=== PATIENT | male | born 1950 | race Caucasian/White ===

== ENCOUNTER → 2019-01-01 | Outpatient (CLI) | payer OTHER, SELFPAY ==
[2019-01-01 10:56] LABS: PSA,Total - Annual Screen 0.68 ng/mL (0.00-4.00)
[2019-01-02 13:20] LABS: AST(SGOT) 24 U/L (15-37); Alanine Aminotransfer ALT/SGPT 35 U/L (16-61); Albumin, Serum 3.6 g/dL (3.2-5.0); Alkaline Phosphatase 121 U/L (45-117); Anion Gap 10 (5-15); BUN 17 mg/dL (7-18); BUN/Creat Ratio 17.4 RATIO (10-20); Calcium,Total 8.8 mg/dL (8.5-10.1); Chloride 108 mmol/L (98-107); Cholesterol 180 mg/dL (200); Creatinine, Serum 0.98 mg/dL (0.70-1.30); EST Glomerular Filtration Rate 82 mL/min (>60); Est Glom Filt Rate - Afr Amer 99 mL/min (>60); Globulin 3.7 g/dL (2.2-4.2); Glucose 92 mg/dL (74-106); High Density Lipoprotein 41 mg/dL; Potassium 4.5 mmol/L (3.5-5.1); Protein, Total 7.3 g/dL (6.4-8.2); Sodium Level 144 mmol/L (136-145); Triglycerides 175 mg/dL; Very Low Density Lipoprotein 35 mg/dL (5-40)
== END | disposition home or self-care (01) ==
LOC: MFPLAB 08:08
PROVIDERS: Family Provider Family Medicine; PCP Family Medicine; Referring Provider Family Medicine; Visit Provider Family Medicine
DX: I10 Essential (primary) hypertension (principal); Z12.5 Encounter for screening for malignant neoplasm of prostate
CPT/HCPCS: 36415; 80053; 80061; 84153; G0103

== ENCOUNTER → 2019-01-28 | Outpatient (CLI) | payer OTHER, SELFPAY ==
[2013-11-01 12:53] VITALS: BMI 33.7
--- NOTE | 2019-01-28 | LES_PTH ---
PATIENT: ROSALBA CURIEL LOC: [facility] U#:[id number] AGE/SX: 68/M ROOM: RE01/28/[address]: Dr. Brain Ly MD : 1950 BED: DIS: 01/28/2019 SPEC #: [id number] RECD: 01/28/19 14:21 STATUS: RENY BECKY #: [id number] MICHAEL: 01/28/19 00:[address]: Brain Ly DEPT: SURGICAL PATHOLOGY RECD BY: Jon Cote Tissues: A - Skin of arm B - Skin of face, NOS Procedures: Surgery Specimen Level IV HEADER OPERATION: Excision right posterior arm; right chin PRE-OP DIAGNOSIS: Rule out BCC TISSUE SUBMITTED: A - Excision right arm, B - Excision right chin MICROSCOPIC DIAGNOSIS A. Skin lesion of right arm, shave biopsy: Basal cell carcinoma, nodular and cystic. See comment. B. Skin lesion of right chin, shave biopsy: Basal cell carcinoma, nodular and cystic. See comment. AM:booker 01/29/19 COMMENT A & B. The lesion is incompletely excised. Clinical correlation is suggested. MICROSCOPIC DESCRIPTION Slides are reviewed. GROSS DESCRIPTION A - Received in fixative is one container labeled with the patient's name and designated right arm. The specimen consists of a shave biopsy of arroyo-white skin measuring 1 x 2.7 x 0.1 cm. The specimen is inked and submitted entirely in one cassette. It will be sectioned at the time of embedding. B - Received in fixative is one container labeled with the patient's name and designated right chin. The specimen consists of a shave biopsy of arroyo-white skin measuring 0.5 x 0.3 x 0.2 cm. The specimen is inked and submitted entirely in one cassette. / TIP:booker 01/28/19 TC:0 CPT: 29442 x2
== END | disposition home or self-care (01) ==
LOC: LABSPEC 14:02
PROVIDERS: Family Provider Family Medicine; PCP Family Medicine; Referring Provider Family Medicine; Visit Provider Family Medicine
DX: C44.612 Basal cell carcinoma of skin of right upper limb, including shoulder (principal); C44.319 Basal cell carcinoma of skin of other parts of face
CPT/HCPCS: 88305

== ENCOUNTER 2019-11-29 07:00 | Day surgery (SDC) | payer OTHER, SELFPAY ==
[2019-10-25 09:46] VITALS: BMI 33.7
[2019-11-29] VITALS (8 sets, daily range): BP systolic 94–152; BP diastolic 53–94; PULSE 53–68; RESP 16; TEMP 36.1–36.9; O2SAT 95–98; BMI 36.4
--- NOTE | 2019-11-29 07:18 | HP.PCM_ITS ---
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 Is patient in pain?: No Allergies No Known Allergies Allergy (Verified 10/25/19 09:45) Medications Metoprolol Tartrate [Lopressor (Beta Eliana)] 25 mg PO DAILY 11/01/13 [History Confirmed 10/25/19] Venlafaxine HCl [Effexor] 37.5 mg PO DAILY 11/01/13 [History Confirmed 10/25/19] pravastatin 20 mg tablet 20 mg PO DAILY 10/25/19 [History Confirmed 10/25/19] [facility] Medical History Sleep apnea (Acute) Hemorrhoids (Acute) Numbness and tingling (Acute) Panic disorder (Chronic) Surgical History Hx of colonoscopy (Acute) Hx of arthroscopic knee surgery (Acute) Hx of right inguinal hernia repair (Acute) Hx of umbilical hernia repair (Acute) History of trigger finger (Acute) Family History Mother Colon cancer Diabetes Father Heart disease CVA (cerebral vascular accident) Hypertension Social History (Updated 10/25/19 @ 10:[address] Angel Mckenzie MD) Smoking Status: Never smoker second hand exposure: No alcohol intake: never substance use type: does not use caffeine: Yes what type of physical activity do you participate in: none frequency: does not exercise HPI HPI HPI: ROSALBA CURIEL, is a 69 M who presents to the office today for surgical con sultation regarding a family history of colon cancer and a personal history of colon polyps. The patient is referred by his primary care present Dr. Brain Ly and a written copy of my surgical consult and recommendations will return to him. September 03, 2014 I performed the most recent colonoscopy for him. There were no polyps identified at that time. He subsequent at that same setting had a surgical hemorrhoidectomy. For at least 3 years he has been in good shape regarding that. Now he is complained over the last year or 2 that after defecation a time. Subsequently has a small amount of drainage. It is slightly irritating. Does not know the etiology. He is wanting that evaluated as well. His family history is notable for mother who had colon cancer and a paternal grandfather. He otherwise enjoys good health. He denies chest pain or shortness of breath. BMI is elevated at 33.7. HPI HPI HPI: ROSALBA CURIEL, is a 69 M who presents to the office today for ROS General General: No weight change, appetite, fatigue, colon cancer, breast cancer or weakness HEENT HEENT: No difficulty swallowing, eye injury, eye surgery, swollen glands or hoarseness Endo Endocrine: No thyroid disease, diabetes mellitus, thyroid cancer, Hair loss, heat intolerance or cold intolerance Skin Skin: No rash or changing moles Musc Musculoskeletal: No back problems, arthritis, rheumatoid arthritis, gout or joint pain Cardio Cardiovascular: No murmur, pacemaker, heart disease, atrial fibrillation, high blood pressure, heart attack, heart stent, palpitations, shortness of breat with exertion or chest pain Psych Psychiatric: Yes anxiety; no depression or hearing voices Resp Respiratory: No shortness of breath, Yes sleep apnea, No cough, No COPD, No asthma, No emphysema, No wheezing Gastro Gastrointestinal: No abdominal pain, No nausea or vomiting, No diarrhea, No constipation, No blood in stool, No acid reflux, Yes hemorrhoids, No ulcers, No gallbladder problem, No black,tarry stools Frankie Hematologic: No blood thinners, No blood disorders, No bleeding, No anemia, No blood clots Neuro Neurologic: No weakness Exam Const General: cooperative, comfortable, no acute distress Nutritional Appearance: obese Orientation: alert, awake [facility] Head: normal to inspection Chest Chest palpation & inspection: normal inspection of the chest Resp Effort & Inspection: normal respiratory effort Auscultation: clear to auscultation bilaterally Cardio Palpation: normal PMI Rate: regular rate Rhythm: regular rhythm Heart Sounds: no murmurs GI Palpation: soft, no hepatosplenomegaly Auscultation: normal bowel sounds Neuro Cognition: normal cognition Extrem General: no calf tenderness Psych Affect: normal affect Assessment & Plan Problems 1. Family history of malignant neoplasm of colon in mother Z80.0 2. Personal history of colonic polyps Z86.010 3. Hemorrhoids, unspecified hemorrhoid type K64.9 Plan I recommended the patient a colonoscopy with possible biopsy or polypectomy as indicated. He is aware of the technique, benefit, risk and alternatives. Very careful inspection of the perianal area will be pursued inspecting for possible etiology to post defecation leakage. Patient states that this leakage only occurs within time. After moving his bowels but not otherwise. He has had an opportunity to ask and have questions answered. He is aware that he is presenting the COVID 19 however the [facility] is reporting a low local incidence. We will schedule and proceed as noted. Cc: Dr. Brain Mckenzie M.D., F.A.C.S. I have re-examined the patient. There are no clinical changes since date of exam. Procedure Criteria Procedure Type: Elective COVID Risk Discussion: The surgeon/proceduralist and patient have discussed in detail the risk of exposure to and/or potential harm posed by the COVID-19 virus with having a surgery/procedure at this time versus the risk of delaying the surgery/procedure. It is not possible to know either the risk of delaying the surgery or procedure or chance of getting an infection with perfect accuracy, but a joint decision was made between the patient and the surgeon/proceduralist to proceed at this time with the scheduled surgery/procedure as indicated on the consent form.
[2019-11-29] MEDS: Lactated Ringers 1,000 ML 100 ML IV (07:24)
--- NOTE | 2019-11-29 08:00 | COLBX_PTH ---
PATIENT: ROSALBA CURIEL LOC: EN U#:[id number] AGE/SX: 69/M ROOM: RE11/29/[address]: Dr. Angel Mckenzie MD : 1950 BED: DIS: 11/29/2019 SPEC #: [id number] RECD: 11/29/19 10:03 STATUS: RENY BECKY #: [id number] MICHAEL: 11/29/19 08:[address]: Angel Mckenzie DEPT: SURGICAL PATHOLOGY RECD BY: Quinten Khan ENTERED: 11/29/19 10:47 SP TYPE: COLON BX OTHR DR: Dr. Brain Ly MD Tissues: Cecum, NOS Procedures: Surgery Specimen Level IV HEADER OPERATION: Colonoscopy (MAC) PRE-OP DIAGNOSIS: History of colon polyps TISSUE SUBMITTED: Cecal polyps x2 MICROSCOPIC DIAGNOSIS Cecal polyps x2, biopsy: Fragments of tubular adenoma. SJ:booker 12/02/19 MICROSCOPIC DESCRIPTION Slides are reviewed. GROSS DESCRIPTION Received in fixative is one container labeled with the patient's name and designated cecal polyps. The specimen consists of multiple irregular fragments of light arroyo soft tissue that in aggregate measure 1 x 0.5 x 0.1 cm. The specimen is totally submitted in one cassette. / SJ:booker 11/29/19 TC:5 CPT: 42853
--- NOTE | 2019-11-29 08:25 | OP.COLON_ITS ---
Patient Name: Shashank Lynn Procedure Date: 11/29/2019 7:55 AM Date of : 1950 Age: 69 Procedure: Colonoscopy Indications: High risk colon cancer surveillance: Personal history of colonic polyps Providers: Angel Mckenzie MD Referring MD: Max Ly Medicines: See the Anesthesia note for documentation of the administered medications Patient Profile: Last Colonoscopy: August 2014. Complications: No immediate complications. Procedure: Pre-Anesthesia Assessment: - Prior to the procedure, a History and Physical was performed, and patient medications and allergies were reviewed. The patient's tolerance of previous anesthesia was also reviewed. The risks and benefits of the procedure and the sedation options and risks were discussed with the patient. All questions were answered, and informed consent was obtained. Prior Anticoagulants: The patient has taken no previous anticoagulant or antiplatelet agents. ASA Grade Assessment: II - A patient with mild systemic disease. After reviewing the risks and benefits, the patient was deemed in satisfactory condition to undergo the procedure. After I obtained informed consent, the scope was passed under direct vision. Throughout the procedure, the patient's blood pressure, pulse, and oxygen saturations were monitored continuously. The adult colonoscope was introduced through the anus and advanced to the cecum, identified by appendiceal orifice and ileocecal valve. The colonoscopy was performed without difficulty. The patient tolerated the procedure well. The quality of the bowel preparation was good. The ileocecal valve and the appendiceal orifice were photographed. Scope In: 8:02:42 AM Scope Withdrawal Time 0 hours 11 minutes 29 seconds Scope Out: 8:19:15 AM Total Procedure Duration Time 0 hours 16 minutes 33 seconds Findings: Hemorrhoids were found on perianal exam. The digital rectal exam was normal. Pertinent negatives include normal prostate (size, shape, and consistency). A 4 mm polyp was found in the cecum. The polyp was sessile. The polyp was removed with a cold snare. Resection and retrieval were complete. A 5 mm polyp was found in the cecum. The polyp was sessile. The polyp was removed with a cold snare. Resection and retrieval were complete. Scattered diverticula were found in the sigmoid colon. Impression: - Hemorrhoids found on perianal exam. - One 4 mm polyp in the cecum, removed with a cold snare. Resected and retrieved. - One 5 mm polyp in the cecum, removed with a cold snare. Resected and retrieved. - Diverticulosis in the sigmoid colon. Recommendation: - Discharge patient to home. - Resume previous diet. - Continue present medications. - Repeat colonoscopy in 5 years for surveillance based on pathology results. - Telephone my office for pathology results in 1 week. Procedure Code(s): --- Professional --- 83919, Colonoscopy, flexible; with removal of tumor(s), polyp(s), or other lesion(s) by snare technique Diagnosis Code(s): --- Professional --- Z86.010, Personal history of colonic polyps K64.9, Unspecified hemorrhoids D12.0, Benign neoplasm of cecum K57.30, Diverticulosis of large intestine without perforation or abscess without bleeding CPT copyright 2017 [employer]. All rights reserved. The codes documented in this report are preliminary and upon advance scout review may be revised to meet current compliance requirements. Angel Mckenzie MD 11/29/2019 8:24:58 AM This report has been signed electronically. Number of Addenda: 0 Note Initiated On: 11/29/2019 7:55 AM
--- NOTE | 2019-11-29 08:25 | OP.CCLET_ITS ---
11/29/2019 Max Ly [address] [place] [address] Re : Colonoscopy procedure for Shashank Lynn Dear Dr. Ly This procedure was performed on Friday, November 29, 2019. My impressions and recommendations are as follows: Impressions : - Hemorrhoids found on perianal exam. - One 4 mm polyp in the cecum, removed with a cold snare. Resected and retrieved. - One 5 mm polyp in the cecum, removed with a cold snare. Resected and retrieved. - Diverticulosis in the sigmoid colon. Recommendations : - Discharge patient to home. - Resume previous diet. - Continue present medications. - Repeat colonoscopy in 5 years for surveillance based on pathology results. - Telephone my office for pathology results in 1 week. My findings are described in the full procedure note, which is enclosed. If I can be of further assistance, please feel free to contact me at Doctor phone number(s): Work: . Sincerely, Angel Mckenzie MD 11/29/2019 8:24:58 AM This report has been signed electronically.
== END 2019-11-29 09:04 | disposition home or self-care (01) ==
LOC: EN 07:04 → AC 07:07
PROVIDERS: Anesthesiology; PCP Family Medicine; Referring Provider Family Medicine; Visit Provider Surgery
PROC: 0DJD8ZZ Inspection of Lower Intestinal Tract, Via Natural or Artificial Opening Endoscopic (ICD-10-PCS; CPT 45378; principal; 2019-11-29 07:55)
DX: D12.0 Benign neoplasm of cecum (principal); K57.30 Diverticulosis of large intestine without perforation or abscess without bleeding; K64.9 Unspecified hemorrhoids; Z87.19 Personal history of other diseases of the digestive system; E66.9 Obesity, unspecified; Z68.33 Body mass index [BMI] 33.0-33.9, adult; E78.00 Pure hypercholesterolemia, unspecified; F41.9 Anxiety disorder, unspecified; I10 Essential (primary) hypertension; G47.30 Sleep apnea, unspecified; Z11.59 Encounter for screening for other viral diseases; Z80.0 Family history of malignant neoplasm of digestive organs; Z79.899 Other long term (current) drug therapy
CPT/HCPCS: 45380; 87635; 88305; 94799; G2023; J7120; J2405; U0003

== ENCOUNTER → 2020-01-16 | Outpatient (CLI) | payer OTHER, SELFPAY ==
[2019-11-29 07:19] VITALS: BMI 36.4
[2020-01-16 10:19] LABS: Cholesterol 178 mg/dL (200); High Density Lipoprotein 42 mg/dL; PSA,Total - Annual Screen 1.17 ng/mL (0.00-4.00); Triglycerides 158 mg/dL; Very Low Density Lipoprotein 32 mg/dL (5-40)
== END | disposition home or self-care (01) ==
LOC: MFPLAB 09:27
PROVIDERS: PCP Family Medicine; Referring Provider Family Medicine; Visit Provider Family Medicine
DX: E78.5 Hyperlipidemia, unspecified (principal); Z12.5 Encounter for screening for malignant neoplasm of prostate
CPT/HCPCS: 36415; 80061; 84153; G0103

== ENCOUNTER → 2020-02-12 | Outpatient (CLI) | payer OTHER, SELFPAY ==
[2019-11-29 07:19] VITALS: BMI 36.4
--- NOTE | 2020-02-12 | LES_PTH ---
PATIENT: ROSALBA CURIEL LOC: [facility] U#:[id number] AGE/SX: 69/M ROOM: RE02/12/[address]: Dr. Brain Ly MD : 1950 BED: DIS: 02/12/2020 SPEC #: [id number] RECD: 02/12/20 17:42 STATUS: RENY BECKY #: [id number] MICHAEL: 02/12/20 00:[address]: Brain Ly DEPT: SURGICAL PATHOLOGY RECD BY: Nick Soto Tissues: A - Skin of face, NOS B - Skin of neck, NOS Procedures: Surgery Specimen Level IV HEADER OPERATION: Shave left face PRE-OP DIAGNOSIS: ? BCC TISSUE SUBMITTED: A - Suspicious left face lesion, B - Suspicious posterior neck lesion MICROSCOPIC DIAGNOSIS A. Skin lesion of face, shave biopsy: Focal basal cell carcinoma. B. Skin lesion of posterior neck, shave biopsy: Basal cell carcinoma. AM:booker 02/14/20 MICROSCOPIC DESCRIPTION Slides are reviewed. GROSS DESCRIPTION A - Received in fixative is one container labeled with the patient's name and designated left face. The specimen consists of a shave biopsy of skin measuring 5 mm in diameter and <0.1 cm in thickness. The specimen is submitted in one cassette for postfixation sectioning. B - Received in fixative is one container labeled with the patient's name and designated posterior neck. The specimen consists of a shave biopsy of skin measuring 0.7 x 0.5 x <0.1 cm. The specimen is submitted in one cassette for postfixation sectioning. / AM:booker 02/13/20 TC:0 CPT: 18582 x2
== END | disposition home or self-care (01) ==
LOC: LABSPEC 02-15 11:17
PROVIDERS: PCP Family Medicine; Referring Provider Family Medicine; Visit Provider Family Medicine
DX: C44.310 Basal cell carcinoma of skin of unspecified parts of face (principal); C44.41 Basal cell carcinoma of skin of scalp and neck
CPT/HCPCS: 88305

== ENCOUNTER → 2021-01-26 08:19 | Outpatient (CLI) | payer MEDICARE, OTHER, SELFPAY ==
[2021-01-26 11:01] LABS: ALB/GLOB Ratio 0.9 RATIO (0.9-2.4); AST(SGOT) 25 U/L (15-37); Alanine Aminotransfer ALT/SGPT 41 U/L (16-61); Albumin, Serum 3.5 g/dL (3.2-5.0); Alkaline Phosphatase 113 U/L (45-117); Anion Gap 7 (5-15); BUN 18 mg/dL (7-18); BUN/Creat Ratio 19.6 RATIO (10-20); Calcium,Total 9.1 mg/dL (8.5-10.1); Chloride 106 mmol/L (98-107); Cholesterol 171 mg/dL (200); Creatinine, Serum 0.92 mg/dL (0.70-1.30); EST Glomerular Filtration Rate 87 mL/min (>60); Est Glom Filt Rate - Afr Amer 105 mL/min (>60); Glucose 110 mg/dL (74-106); High Density Lipoprotein 41 mg/dL; PSA,Total - Annual Screen 1.01 ng/mL (0.00-4.00); Protein, Total 7.5 g/dL (6.4-8.2); Sodium Level 139 mmol/L (136-145); Triglycerides 155 mg/dL; Very Low Density Lipoprotein 31 mg/dL (5-40)
== END ==
PROVIDERS: PCP Family Medicine; Referring Provider Family Medicine; Visit Provider Family Medicine
DX: R73.01 Impaired fasting glucose (principal); Z12.5 Encounter for screening for malignant neoplasm of prostate
CPT/HCPCS: 36415; 80053; 80061; 84153; G0103

== ENCOUNTER → 2021-09-08 | Outpatient (CLI) | payer MEDICARE, OTHER, SELFPAY ==
[2021-09-08 10:14] LABS: AST(SGOT) 20 U/L (15-37); Alanine Aminotransfer ALT/SGPT 34 U/L (16-61); Albumin, Serum 3.5 g/dL (3.2-5.0); Alkaline Phosphatase 101 U/L (45-117); Anion Gap 5 (5-15); BUN 15 mg/dL (7-18); BUN/Creat Ratio 16.1 RATIO (10-20); Calcium,Total 8.7 mg/dL (8.5-10.1); Chloride 107 mmol/L (98-107); Cholesterol 170 mg/dL (200); Creatinine, Serum 0.93 mg/dL (0.70-1.30); EST Glomerular Filtration Rate 86 mL/min (>60); Est Glom Filt Rate - Afr Amer 103 mL/min (>60); Globulin 3.6 g/dL (2.2-4.2); Glucose 103 mg/dL (74-106); High Density Lipoprotein 40 mg/dL; PSA,Total - Annual Screen 1.05 ng/mL (0.00-4.00); Potassium 4.3 mmol/L (3.5-5.1); Protein, Total 7.1 g/dL (6.4-8.2); Sodium Level 139 mmol/L (136-145); Triglycerides 169 mg/dL; Very Low Density Lipoprotein 34 mg/dL (5-40)
== END | disposition home or self-care (01) ==
LOC: MFPLAB 08:19
PROVIDERS: PCP Family Medicine; Referring Provider Family Medicine; Visit Provider Family Medicine
DX: E78.5 Hyperlipidemia, unspecified (principal); Z12.5 Encounter for screening for malignant neoplasm of prostate
CPT/HCPCS: 36415; 80053; 80061; 84153; G0103

== ENCOUNTER → 2023-01-26 | Outpatient (CLI) | payer MEDICARE, OTHER, SELFPAY ==
[2023-01-26 10:53] LABS: ALB/GLOB Ratio 0.9 RATIO (0.9-2.4); AST(SGOT) 23 U/L (15-37); Alanine Aminotransfer ALT/SGPT 34 U/L (16-61); Albumin, Serum 3.5 g/dL (3.2-5.0); Alkaline Phosphatase 123 U/L (45-117); Anion Gap 5 (5-15); BUN 20 mg/dL (7-18); BUN/Creat Ratio 21.1 RATIO (10-20); Calcium,Total 9.2 mg/dL (8.5-10.1); Chloride 110 mmol/L (98-107); Cholesterol 164 mg/dL (200); Creatinine, Serum 0.95 mg/dL (0.70-1.30); EST Glomerular Filtration Rate 83 mL/min (>60); Est Glom Filt Rate - Afr Amer 101 mL/min (>60); Globulin 3.8 g/dL (2.2-4.2); Glucose 116 mg/dL (74-106); High Density Lipoprotein 40 mg/dL; PSA,Total - Annual Screen 1.12 ng/mL (0.00-4.00); Potassium 4.5 mmol/L (3.5-5.1); Protein, Total 7.3 g/dL (6.4-8.2); Sodium Level 141 mmol/L (136-145); Triglycerides 117 mg/dL; Very Low Density Lipoprotein 23 mg/dL (5-40)
== END | disposition home or self-care (01) ==
LOC: MFPLAB 08:05
PROVIDERS: PCP Family Medicine; Visit Provider Family Medicine
DX: Z12.5 Encounter for screening for malignant neoplasm of prostate (principal); E78.5 Hyperlipidemia, unspecified
CPT/HCPCS: 36415; 80053; 80061; 84153; G0103

== ENCOUNTER → 2024-02-19 | Outpatient (CLI) | payer MEDICARE, OTHER, SELFPAY ==
[2024-02-19 11:45] LABS: ALB/GLOB Ratio 0.9 RATIO (0.9-2.4); AST(SGOT) 18 U/L (15-37); Alanine Aminotransfer ALT/SGPT 28 U/L (16-61); Albumin, Serum 3.5 g/dL (3.2-5.0); Alkaline Phosphatase 113 U/L (45-117); Anion Gap 3 (5-15); BUN 17 mg/dL (7-18); Calcium,Total 9.1 mg/dL (8.5-10.1); Chloride 107 mmol/L (98-107); Cholesterol 176 mg/dL (200); Creatinine, Serum 0.94 mg/dL (0.70-1.30); EST Glomerular Filtration Rate 84 mL/min (>60); Est Glom Filt Rate - Afr Amer 101 mL/min (>60); Globulin 3.7 g/dL (2.2-4.2); Glucose 104 mg/dL (74-106); High Density Lipoprotein 47 mg/dL; PSA,Total - Annual Screen 1.24 ng/mL (0.00-4.00); Potassium 4.3 mmol/L (3.5-5.1); Protein, Total 7.2 g/dL (6.4-8.2); Sodium Level 137 mmol/L (136-145); Triglycerides 131 mg/dL; Very Low Density Lipoprotein 26 mg/dL (5-40)
== END | disposition home or self-care (01) ==
LOC: MFPLAB 08:06
PROVIDERS: PCP Family Medicine; Visit Provider Family Medicine
DX: I10 Essential (primary) hypertension (principal); E78.5 Hyperlipidemia, unspecified; Z12.5 Encounter for screening for malignant neoplasm of prostate
CPT/HCPCS: 36415; 80053; 80061; 84153; G0103

== ENCOUNTER 2025-01-24 08:10 | Day surgery (SDC) | payer MEDICARE, OTHER, SELFPAY ==
[2025-01-24] VITALS (8 sets, daily range): BP systolic 125–159; BP diastolic 77–89; PULSE 51–63; RESP 14–22; TEMP 36.1–36.5; O2SAT 93–99; BMI 35.4
[2025-01-24] MEDS: Lactated Ringers 1,000 ML 15 ML IV (08:42)
--- NOTE | 2025-01-24 09:03 | PCM.PRE.AN2 ---
ASA Classification* ASA Classification ASA Classification: 2 Assessment & Plan Anesthesia* Anesthesia Assessment Anesthesia Assessment: Discussed sedation and/or anesthesia options, risks, benefits, and alternatives with patient/parents/legal guardian/POA. Questions invited. The patient/parents/legal guardian/POA seems to understand and agrees to proceed with anesthesia plan. Reviewed the physical assessment, medical history, allergy history and patient home medications list prior to surgery/procedure/anesthetic and documented any changes. Performed airway and anesthesia risk assessments. Anesthesia Type Anesthesia Type: MAC Anesthesia Focused Assessment* Temperature: 97.4 F Pulse Rate: 63 Blood Pressure: 159/89 Respiratory Rate: 18 Pulse Ox: 99 Airway Assessment Mouth opens: >3 cm Mallampati Score: II Labs Anesthesia Preop lab: CBC WBC, (4.4-11.0) 4.7 K/mm3 04/15/12, 06:50 RBC, (4.6-6.2) 4.42 M/mm3 L 04/15/12, 06:50 Hgb, (13.0-16.5) 13.6 g.dL 04/15/12, 06:50 Hct, (40-54) 39.9 % L 04/15/12, 06:50 Plt Count, (150-450) 234 K/mm3 04/15/12, 06:50 CHEMISTRY Potassium, (3.5-5.1) 4.3 mmol/L 02/19/24, 08:07 Sodium, (136-145) 137 mmol/L 02/19/24, 08:07 Magnesium, (1.8-2.4) 1.8 mg/dL 04/15/12, 06:50 BUN, (7-18) 17 mg/dL 02/19/24, 08:07 Creatinine, (0.70-1.30) 0.94 mg/dL 02/19/24, 08:07 Glucose, (74-106) 104 mg/dL 02/19/24, 08:07 TSH, (0.358-3.74) 1.07 uIU/mL 04/15/12, 06:50 COAG Pre-Assessment Diagnosis/Proposed Procedure Planned Operative Procedure(s): CSCOPE OA Anesthesia History 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 When Was Last Pacemaker Check QUESTION #4 FULL TEXT: You/Your Family Experience fever (hyperthermia) with Anesthesia Last Oral Intake Last Oral intake: Last Oral Intake NPO since 22:00 01/24/25 08:38 Meds taken in AM with sips of Yes 01/24/25 08:38 water? Meds patient instructed to metoprolol, effexor 01/24/25 08:38 take am of surgery PONV PONV - architectural draftsman: PONV - architectural draftsman Female No 01/21/25 15:55 HX of Motion Sickness No 01/21/25 15:55 HX of N/V After Surgery No 01/21/25 15:55 Non-Smoker Yes 01/21/25 15:55 Duration of Surgery greater No 01/21/25 15:55 than 60 minutes Number of Risk Factors 1 01/21/25 15:55 PONV Score Low Risk 01/21/25 15:55 Height & Weight Height & Weight: Anesthesia: Height & Weight Height 5 ft 10 in 01/24/25 08:38 Weight: 112 kg 01/24/25 08:38 Body Mass Index (BMI) 35.4 01/24/25 08:38 Respiratory Assessment Respiratory Assessment - architectural draftsman: Respiratory Tract Infection Hx - architectural draftsman Hx Respiratory Tract Infection No 01/21/25 15:55 STOP Sleep Apnea STOP Sleep Apnea - architectural draftsman: STOP Sleep Apnea - architectural draftsman Hx Hypertension Yes: CONTROLLED WITH MED 01/21/25 15:55 Hx Sleep Apnea Yes 01/21/25 15:55 CPAP Yes 01/21/25 15:55 BIPAP No 01/21/25 15:55 Do you snore loudly (louder than talking or can be heard Do you often feel tired/ fatigued/ sleepy during daytime? Has anyone observed you stop breathing during sleep? STOP Results Positive 01/21/25 15:55 QUESTION #5 FULL TEXT : Do you snore loudly (louder than talking or can be heard through closed doors)? 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 Specify any problems Hx of Preganancy in last 3 N/A 01/21/25 15:55 Months Nurse Filling Out Transfusion DSCHRIBER 01/21/25 15:55 & Questions: Date: 01/21/25 01/21/25 15:55 Time: 15:56 01/21/25 15:55 Patient unable to answer at this time (ie. confused, unrespo /Reproduction History /Reproductive History - architectural draftsman: /Reproductive Hx- architectural draftsman Hx Now No 01/21/25 15:55 Gestational Age (in weeks): EDC: Hx Hx Para Hx Section SAB No 01/21/25 15:55 Active Medications Active Medications: Current Medications Generic Name Dose Route Start Last Admin Trade Name Radha PRN Reason Stop Dose Admin Lactated Ringer's 1,000 mls @ 15 mls/hr 01/24/25 08:15 01/24/25 08:42 IV 15 mls/hr .Q48H ZAIAR Administration PFSH Medical History Cancer Anxiety High cholesterol Non-smoker CPAP (continuous positive airway pressure) dependence Personal history of colonic polyps Family history of malignant neoplasm of colon in mother Panic disorder Home Medications ?Medication ?Instructions ?Recorded ?Last Taken ?Type metoprolol tartrate 25 mg tablet 25 mg PO DAILY bp 11/01/13 01/24/25 History venlafaxine 37.5 mg tablet 37.5 mg PO DAILY 11/01/13 01/24/25 History pravastatin 20 mg tablet 20 mg PO QHS 10/25/19 Unknown History CPAP - Continuous Positive Airway 01/21/25 Unknown History Pressure([facility] INFORMATIONAL USE ONLY) Allergy/AdvReac Type Severity Reaction Status Date / Time No Known Allergies Allergy Verified 01/24/25 08:37 Family History Mother Colon cancer Diabetes Father Heart disease CVA (cerebral vascular accident) Hypertension Surgical History Hx of colonoscopy Hx of arthroscopic knee surgery Hx of right inguinal hernia repair Hx of umbilical hernia repair History of trigger finger Social History Smoking Status: Never smoker second hand exposure: No alcohol intake: never substance use type: does not use caffeine: Yes what type of physical activity do you participate in: none frequency: does not exercise Review of Systems (Anesthesia) ROS Narrative System reviewed and no additional complaints, except as documented.
--- NOTE | 2025-01-24 09:15 | COLBX_PTH ---
PATIENT: ROSALBA CURIEL LOC: EN U#:[id number] AGE/SX: 74/M ROOM: RE01/24/[address]: Dr. Ovidio Yost MD : 1950 BED: DIS: 01/24/2025 SPEC #: [id number] RECD: 01/24/25 11:04 STATUS: RENY BECKY #: [id number] MICHAEL: 01/24/25 09:[address]: Ovidio Yost DEPT: SURGICAL PATHOLOGY RECD BY: Gaurang Shipley ENTERED: 01/24/25 13:03 SP TYPE: COLON BX OT DR: Dr. Brain Ly MD Tissues: A - Sigmoid colon biopsy Procedures: Surgery Specimen Level IV HEADER OPERATION: Colonoscopy with biopsy PRE-OP DIAGNOSIS: Screening colonoscopy TISSUE SUBMITTED: A- Sigmoid colon polyp biopsy MICROSCOPIC DIAGNOSIS A. Sigmoid colon, polyp, biopsy: * Tubular adenoma. MICROSCOPIC DESCRIPTION Slides are reviewed. GROSS DESCRIPTION A. Received in fixative is one container labeled with the patient's name and designated Sigmoid colon polyp biopsy. The specimen consists of one irregular fragment of light arroyo soft tissue that measures 0.6 cm. The specimen is totally submitted in one cassette. [place] 01/24/2025 CPT:75446
--- NOTE | 2025-01-24 09:19 | PCM.HP.STD ---
HPI - General General Date of Admission: 01/24/25 Date of Service: 01/24/25 Chief Complaint: Screening colonoscopy HPI Narrative ROSALBA CURIEL, is a 74 M who presents for screening colonoscopy. His last colonoscopy was about 5 to 10 years ago. It sounds as though he has had colon polyps on a previous colonoscopy. He does have a family history of colon cancer in his mother and grandfather. He himself denies any recent GI issues or complaints. No black or tarry stools. No constipation or diarrhea. [facility] Medical History Cancer Anxiety High cholesterol Non-smoker CPAP (continuous positive airway pressure) dependence Personal history of colonic polyps Family history of malignant neoplasm of colon in mother Panic disorder Home Medications ?Medication ?Instructions ?Recorded ?Last Taken ?Type metoprolol tartrate 25 mg tablet 25 mg PO DAILY bp 11/01/13 01/24/25 History venlafaxine 37.5 mg tablet 37.5 mg PO DAILY 11/01/13 01/24/25 History pravastatin 20 mg tablet 20 mg PO QHS 10/25/19 Unknown History CPAP - Continuous Positive Airway 01/21/25 Unknown History Pressure([facility] INFORMATIONAL USE ONLY) Allergy/AdvReac Type Severity Reaction Status Date / Time No Known Allergies Allergy Verified 01/24/25 08:37 Family History Mother Colon cancer Diabetes Father Heart disease CVA (cerebral vascular accident) Hypertension Surgical History Hx of colonoscopy Hx of arthroscopic knee surgery Hx of right inguinal hernia repair Hx of umbilical hernia repair History of trigger finger Social History Smoking Status: Never smoker second hand exposure: No alcohol intake: never substance use type: does not use caffeine: Yes what type of physical activity do you participate in: none frequency: does not exercise Vital Signs Vital Signs Vital Signs: 01/24/25 08:38 01/24/25 08:38 01/24/25 09:03 Temperature 97.4 F L 97.4 F L Temperature Source Temporal Pulse Rate 63 63 Respiratory Rate 18 18 Respiratory Pattern Normal Blood Pressure 159/89 H 159/89 H Blood Pressure Mean 112 Blood Pressure Source Monitor Blood Pressure Position Sitting Blood Pressure Location Right Arm Pulse Ox 99 99 Oxygen Delivery Method Room Air Weight Weight: 246 lb 14.684 oz Body Mass Index (BMI) 35.4 Physical Exam Const alert, oriented x3 and no apparent distress Assessment & Plan Assessment/Plan (1) Personal history of colonic polyps: PLAN: Plan Patient is a 74-year-old male in need of a surveillance colonoscopy. He has a history of colon polyps as well as a family history of colon cancer. He denies any new GI issues or complaints. We discussed the details of the planned colonoscopy including the risks benefits and alternatives. He wishes to proceed. Procedure will begin momentarily Charges/Coding Visit Charges Inpatient E&M: 11539 Init Hosp L2
[2025-01-24] MEDS: Lactated Ringers 500 ML IV (09:27)
--- NOTE | 2025-01-24 10:01 | OP.COLON_ITS ---
Patient Name: Shashank Lynn Procedure Date: 01/24/2025 9:06 AM Date of : 1950 Age: 74 Procedure: Colonoscopy Indications: High risk colon cancer surveillance: Personal history of colonic polyps Providers: Ovidio Yost MD Referring MD: Max Ly Medicines: Monitored Anesthesia Care Patient Profile: Refer to note in patient chart for documentation of history and physical. Last Colonoscopy: several years ago. Complications: No immediate complications. Estimated blood loss: Minimal. Procedure: Pre-Anesthesia Assessment: - Prior to the procedure, a History and Physical was performed, and patient medications and allergies were reviewed. The patient's tolerance of previous anesthesia was also reviewed. The risks and benefits of the procedure and the sedation options and risks were discussed with the patient. All questions were answered, and informed consent was obtained. Prior Anticoagulants: The patient has taken no anticoagulant or antiplatelet agents. ASA Grade Assessment: II - A patient with mild systemic disease. After reviewing the risks and benefits, the patient was deemed in satisfactory condition to undergo the procedure. After I obtained informed consent, the scope was passed under direct vision. Throughout the procedure, the patient's blood pressure, pulse, and oxygen saturations were monitored continuously. The adult colonoscope was introduced through the anus and advanced to the cecum, identified by appendiceal orifice and ileocecal valve. The ileocecal valve, appendiceal orifice, and rectum were photographed. The entire colon was well visualized. The colonoscopy was performed without difficulty. The patient tolerated the procedure well. The quality of the bowel preparation was adequate. Moderate Sedation: See the other procedure note for documentation of moderate sedation with intraservice time. Scope In: 9:38:04 AM Scope Withdrawal Time 0 hours 8 minutes 44 seconds Scope Out: 9:55:18 AM Total Procedure Duration Time 0 hours 17 minutes 14 seconds Findings: The perianal and digital rectal examinations were normal. Non-bleeding internal hemorrhoids were found during retroflexion. The hemorrhoids were moderate. A 3 mm polyp was found in the sigmoid colon. The polyp was semi-sessile. The polyp was removed with a cold biopsy forceps. Resection and retrieval were complete. Verification of patient identification for the specimen was done by the nurse using the patient's name, date and medical record number. Estimated blood loss was minimal. The exam was otherwise without abnormality on direct and retroflexion views. Impression: - Non-bleeding internal hemorrhoids. - One 3 mm polyp in the sigmoid colon, removed with a cold biopsy forceps. Resected and retrieved. - The examination was otherwise normal on direct and retroflexion views. Recommendation: - Discharge patient to home (ambulatory). - High fiber diet. - Await pathology results. - Repeat colonoscopy in 5 years for surveillance. - Return to my office PRN. - Continue present medications. Procedure Code(s): --- Professional --- 61136, Colonoscopy, flexible; with biopsy, single or multiple Diagnosis Code(s): --- Professional --- Z86.010, Personal history of colonic polyps D12.5, Benign neoplasm of sigmoid colon K64.8, Other hemorrhoids CPT copyright 2021 [employer]. All rights reserved. The codes documented in this report are preliminary and upon lead rider review may be revised to meet current compliance requirements. Ovidio Yost MD 01/24/2025 10:00:34 AM This report has been signed electronically. Number of Addenda: 0 Note Initiated On: 01/24/2025 9:06 AM
--- NOTE | 2025-01-24 10:01 | OP.PROVAT_ITS ---
01/24/2025 Max Ly [address] [place] [address] Re : Colonoscopy procedure for Shashank Lynn Dear Dr. Ly This procedure was performed on Friday, January 24, 2025. My impressions and recommendations are as follows: Impressions : - Non-bleeding internal hemorrhoids. - One 3 mm polyp in the sigmoid colon, removed with a cold biopsy forceps. Resected and retrieved. - The examination was otherwise normal on direct and retroflexion views. Recommendations : - Discharge patient to home (ambulatory). - High fiber diet. - Await pathology results. - Repeat colonoscopy in 5 years for surveillance. - Return to my office PRN. - Continue present medications. My findings are described in the full procedure note, which is enclosed. If I can be of further assistance, please feel free to contact me at . Sincerely, Ovidio Yost MD 01/24/2025 10:00:34 AM This report has been signed electronically.
--- NOTE | 2025-01-24 10:03 | PCM.POST.ANE ---
Anesthesia: Postop Eval I Current Vital Signs Temperature: 97 F Pulse Rate: 60 Blood Pressure: 132/77 Respiratory Rate: 22 Pulse Ox: 93 Oxygen Delivery Method: Room Air Assessment Airway patent: Yes Spontaneous unlabored respirations: Yes Mental status: Awake and Calm nausea: No Vomiting: No Anesthesia Complication: No Fluid Hydration Crystalloid volume administer (ml): 500 Total IV fluid infused: 500 Progress Note Anesthesia document: Postop Eval 1 completed: Yes
--- NOTE | 2025-01-24 13:12 | POSTOPAN2_ITS ---
Anesthesia Postop Eval I Sum Postop Eval Completion status Anesthesia document: Postop Eval 1 completed: Yes Anesthesia Postop Eval I Summary Anesthesia Postop Eval I Summary: Anesthesia Postop Eval I: Assessment Summary Airway patent Yes 01/24/25 10:03 INJECTION [email or web address] Spontaneous unlabored Yes 01/24/25 10:03 INJECTION [email or web address] respirations Mental status Awake,Calm 01/24/25 10:03 INJECTION [email or web address] nausea No 01/24/25 10:03 INJECTION [email or web address] Vomiting No 01/24/25 10:03 INJECTION [email or web address] Anesthesia Postop Eval I: Fluid Summary Crystalloid volume administer 500 01/24/25 10:03 INJECTION [email or web address] (ml) Colloids volume administered ( ml) Blood Product volume administered (ml) Total IV fluid infused 500 01/24/25 10:03 INJECTION [email or web address] Anesthesia Postop Eval I: Summary Notes Anesthesia Complication No 01/24/25 10:03 INJECTION [email or web address] Anesthesia Complication Comment: Post-operative progress note Anesthesia: Postop Eval II Evaluation Mental status: Awake Pain Level: 0 nausea: No Vomiting: No
--- NOTE | 2025-01-24 13:12 | PCM.POSTANE2 ---
Anesthesia Postop Eval I Sum Postop Eval Completion status Anesthesia document: Postop Eval 1 completed: Yes Anesthesia Postop Eval I Summary Anesthesia Postop Eval I Summary: Anesthesia Postop Eval I: Assessment Summary Airway patent Yes 01/24/25 10:03 SANITATION [email or web address] Spontaneous unlabored Yes 01/24/25 10:03 SANITATION [email or web address] respirations Mental status Awake,Calm 01/24/25 10:03 SANITATION [email or web address] nausea No 01/24/25 10:03 SANITATION [email or web address] Vomiting No 01/24/25 10:03 SANITATION [email or web address] Anesthesia Postop Eval I: Fluid Summary Crystalloid volume administer 500 01/24/25 10:03 SANITATION [email or web address] (ml) Colloids volume administered ( ml) Blood Product volume administered (ml) Total IV fluid infused 500 01/24/25 10:03 SANITATION [email or web address] Anesthesia Postop Eval I: Summary Notes Anesthesia Complication No 01/24/25 10:03 SANITATION [email or web address] Anesthesia Complication Comment: Post-operative progress note Anesthesia: Postop Eval II Evaluation Mental status: Awake Pain Level: 0 nausea: No Vomiting: No
== END 2025-01-24 10:34 | disposition home or self-care (01) ==
LOC: EN 08:13 → AC 08:14
PROVIDERS: PCP Family Medicine; Referring Provider Family Medicine; Visit Provider Surgery
PROC: 0DJD8ZZ Inspection of Lower Intestinal Tract, Via Natural or Artificial Opening Endoscopic (ICD-10-PCS; CPT 45378; principal; 2025-01-24 09:10)
DX: Z12.11 Encounter for screening for malignant neoplasm of colon (principal); K64.8 Other hemorrhoids; Z86.0100 Personal history of colon polyps, unspecified; E78.00 Pure hypercholesterolemia, unspecified; Z80.0 Family history of malignant neoplasm of digestive organs; F32.A Depression, unspecified; Z79.899 Other long term (current) drug therapy; K63.5 Polyp of colon
CPT/HCPCS: 45380; 88305

== ENCOUNTER → 2025-03-24 | Outpatient (CLI) | payer MEDICARE, OTHER, SELFPAY ==
[2025-03-24 11:14] LABS: AST(SGOT) 26 U/L (<=37); Alanine Aminotransfer ALT/SGPT 24 U/L (<=46); Albumin, Serum 4.1 g/dL (3.4-4.8); Alkaline Phosphatase 109 U/L (40-129); Anion Gap 10 (5-15); BUN 23 mg/dL (4-19); BUN/Creat Ratio 25.4 RATIO (10-20); Calcium,Total 9.4 mg/dL (7.6-11.0); Carbon Dioxide 23.8 mmol/L (21.0-32.0); Chloride 106 mmol/L (98-108); Cholesterol 162 mg/dL (<=200); Globulin 2.9 g/dL (2.2-4.2); Glucose 118 mg/dL (70-99); Low Density Lipoprotein Calc. 104 mg/dL; PSA,Total - Annual Screen 1.09 ng/mL (0.02-4.00); Potassium 4.3 mmol/L (3.3-5.1); Triglycerides 90 mg/dL; Very Low Density Lipoprotein 18 mg/dL (5-40); cholesterol:hdl ratio screen 3.92
== END | disposition home or self-care (01) ==
LOC: MFPLAB 08:19
PROVIDERS: PCP Family Medicine; Visit Provider Family Medicine
DX: Z12.5 Encounter for screening for malignant neoplasm of prostate (principal); R73.01 Impaired fasting glucose
CPT/HCPCS: 36415; 80053; 80061; 84153; G0103